=== PATIENT | male | born 1950 | race Caucasian/White ===

== ENCOUNTER 2017-05-08 09:29 | Outpatient (CLI) | payer MEDICARE ==
--- NOTE | 2017-05-08 15:58 | RAD ---
LEFT WRIST THREE VIEWS 05/08/17 No cystic lesion of bone are seen. No acute fracture or bony malformation was seen. There are a few f lecks of bone seen near the radioulnar articulation that are probably related to old trauma. There solomon s been old trauma to the fifth metacarpal. IMPRESSION: No acute bony changes. POS: HOME
== END 2017-05-08 09:30 | disposition home or self-care (01) ==
LOC: BURRAD 09:29
PROVIDERS: ATTEND Physician Assistant
DX: M67.40 Ganglion, unspecified site (principal)

== ENCOUNTER 2019-01-14 11:09 | Outpatient (CLI) | payer MEDICARE ==
--- NOTE | 2019-01-14 18:04 | ULT ---
RIGHT UPPER QUADRANT ULTRASOUND 01/14/19 The liver is enlarged measuring 18 to 19 cm in oblique sagittal length. It is very echo dense signify ing diffuse fatty infiltration. No focal hepatic mass or dilated ducts were seen. The gallbladder con tains no signs of stones. The wall is 2 mm thick. The common bile duct is upper normal in size at 6 m m in width. The pancreas was obscured by bowel gas, as was the aorta. The right kidney appears nikky l and measures 11.3 cm in length. IMPRESSION: Prominent hepatomegaly with diffuse fatty infiltration. Borderline common bile duct size without any evidence of intrahepatic dilation of ducts. Pancreas not seen. POS: HOME
== END 2019-01-14 11:10 | disposition home or self-care (01) ==
LOC: BURULT 11:09
PROVIDERS: ATTEND Family Medicine
DX: R16.0 Hepatomegaly, not elsewhere classified (principal); K76.0 Fatty (change of) liver, not elsewhere classified
CPT/HCPCS: 76705

== ENCOUNTER 2022-03-27 14:49 | Emergency (ER) | payer MEDICARE ==
[2022-03-27] MEDS ORDERED: Lidocaine 2% PF 5 ML VIAL ONE (15:21)
[2022-03-27] MEDS ORDERED: Bacitracin 1 PK ONE (15:21)
[2022-03-27] MEDS ORDERED: Boostrix 0.5 ML (Tdap) VIAL (>/=7 yrs of age) ONE (15:52)
== END 2022-03-27 16:04 | disposition home or self-care (01) ==
LOC: BURERS 14:49
DX: S61.210A Laceration without foreign body of right index finger without damage to nail, initial encounter (principal); E03.9 Hypothyroidism, unspecified; I10 Essential (primary) hypertension; W27.0XXA Contact with workbench tool, initial encounter; Z23 Encounter for immunization
CPT/HCPCS: 12001; 90471; 90715; J2001